=== PATIENT | female | born 1930 | race Caucasian/White ===

== ENCOUNTER 2016-12-04 12:45 | Inpatient (IN) | payer MEDICARE, MEDICAID ==
[~2016-12-04] VITALS: Ht 162.6 cm; Wt 73.9 kg
[~2016-12-04 12:45] MED LIST: BL ASPIRIN325 MG PO; HYDROCO/APAP1 TA9 PO; LASIX 40 MG TAB40 MG PO; LAXATIVE25 MG PO; LOSARTAN POT100 MG PO; METOPROLOL50 M1 PO; SIMVASTATIN40 MG PO; STOOL SOFTENER100 MG PO
[2016-12-07 12:10] VITALS: BP 183/90
[2016-12-07 12:50] LABS: HEMATOCRIT 41.8 % (37.0-47.0); IMMATURE GRANULOCYTES 0.3 % (0.0-1.0); MEAN CELL VOLUME 95.9 fL CALC (80.0-100.0); MEAN CORPUSCULAR HGB 32.1 pG CALC (26.0-32.0); MEAN CORPUSCULAR HGB CONC 33.5 g/L CALC (32.0-36.0); NEUT# 8.07 thou/uL (2.00-7.15); RED BLOOD COUNT 4.36 mill/uL (4.20-5.60); RED CELL DISTRI WIDTH 13.8 % (11.5-15.5)
== END 2016-12-07 15:00 | disposition home or self-care (01) | DRG 554 ==
LOC: MS2 12-07 11:00
PROVIDERS: ADMIT Orthopaedic Surgery; ATTEND Orthopaedic Surgery
DX: M17.12 Unilateral primary osteoarthritis, left knee (principal); R50.9 Fever, unspecified; M21.062 Valgus deformity, not elsewhere classified, left knee; Z53.09 Procedure and treatment not carried out because of other contraindication; Z96.651 Presence of right artificial knee joint
CPT/HCPCS: J2270

== ENCOUNTER 2017-02-28 11:27 | Inpatient (IN) | payer MEDICARE, MEDICAID ==
[~2017-02-28] VITALS: Ht 162.6 cm; Wt 69.4 kg
[~2017-02-28 11:27] MED LIST changes: +EQL IBUPROFEN200 MG PO
[2017-03-08] VITALS (7 sets, daily range): BP systolic 99–153; BP diastolic 52–76
[2017-03-08] MEDS ORDERED: AMLODIPINE5 MG PO (06:05)
--- NOTE | 2017-03-08 11:22 | NUR ---
PT ARRIVED TO THE FLOOR WITH TWO MEMBERS OF THE OR STAFF. PT IS ALERT, AWAKE, AND ORIENTATED X3. PT ALREADY IN BED. PT ORIENTATED TO ROOM, RIGHTS, RESPONSIBILITIES AND CALL LIGHT. PT HAS EXTREME VISUAL LOSS, PICKS UP BOX OF TISSUES AND PUTS TO FACE, CANNOT IDENTIFY OBJECT. PT STATES "MY EYE SITE REALLY WENT BAD WHEN I HAD MY MINI STROKE." PT HAS DOCUMENTED LEFT SIDED CVA. PT CAN READILY IDENTIFY RED BUTTON OCULAR CARE TECHNICIAN LIGHT (NURSES LIGHT). PHYSICAL THERAPY IN ROOM AT THIS TIME TO WORK WITH PT.
--- NOTE | 2017-03-08 13:12 | NUR ---
Visited pt room for med rec. Talked to pt regarding home medications. Reviewed drug, strength, and last time taken. Updated med list accordingly. Pt allergy list included amplodipine, checked with pt and she said she just started this medication on saturday and has not been having any side effects. Pt confirmed that she does have allergy to penicillin (tounge swelling and itching), as well as sulfa drugs (tongue swelling and itching). Pt indicated that benazepril made her stomach hurt which is not a true allergy. She was unsure about allergies to other medications on allergy list. Pt did not have any questions or concerns regarding her medications.
[2017-03-08 13:14] LABS: HEMATOCRIT 34.5 % (37.0-47.0); HEMOGLOBIN 11.5 g/dl (12.0-16.0); IMMATURE GRANULOCYTES 2.5 % (0.0-1.0); MEAN CELL VOLUME 97.2 fL CALC (80.0-100.0); MEAN CORPUSCULAR HGB 32.4 pG CALC (26.0-32.0); MEAN CORPUSCULAR HGB CONC 33.3 g/L CALC (32.0-36.0); NEUT# 16.58 thou/uL (2.00-7.15); RED BLOOD COUNT 3.55 mill/uL (4.20-5.60)
[2017-03-08 13:30] LABS: ANION GAP 12 (6-22 (CALC)); BUN 11 mg/dL (8-23); BUN/CREATININE RATIO 19 (12-20 (CALC)); CALCIUM 9.2 mg/dL (8.4-10.2); CARBON DIOXIDE 22 mmol/l (22-30); CHLORIDE 107 mmol/l (95-108); CREATININE 0.6 mg/dL (0.5-1.0); GFR > 60 ML/MIN (>=60 (CALC)); GFR FOR AFR.AMER. > 60 ML/MIN (>=60 (CALC)); GLUCOSE 175 mg/dL (82-115); MAGNESIUM 1.8 mg/dL (1.6-2.3); POTASSIUM 3.9 mmol/l (3.5-5.1); SODIUM 138 mmol/l (137-146)
--- NOTE | 2017-03-08 15:00 | NUR ---
PT MEDICATED FOR LT KNEE PAIN 12/30; IVF INFUSING WITHOUT DIFFICULTY; NO OTHER COMPLAINTS VOICED; CALL RO WITHIN REACH; WILL CONTINUE TO MONITOR.
--- NOTE | 2017-03-08 17:24 | NUR ---
PT RESTING WITH EYES CLOSED; NO S/SX OF DISTRESS NOTED; DRSG TO LT KNEE CDI; SCD IN PLACE; CALL RO WITHIN REACH; WILL CONTINUE TO MONITOR.
--- NOTE | 2017-03-08 18:26 | NUR ---
PT ASSISTED WITH BEDPAN; VOIDS WITHOUT DIFFICULTY; NO COMPLAINTS VOICED; CALL RO WITHIN REACH; WILL CONTINUE TO MONITOR
--- NOTE | 2017-03-08 20:05 | NUR ---
PT IS RELAXING IN BED WITH NO DISTRESS NOTED. IV SITE IS FREE FROM REDNESS OR EDEMA. DRESSING ON LEFT KNEE IS CDI. ICE PACK IN PLACE.CONTINUE TO OSBERVE AND MONITOR.
[2017-03-09 00:12] VITALS: BP 150/56
--- NOTE | 2017-03-09 00:30 | NUR ---
PT IS RELAXING IN BED WITH NO DISTRESS NOTED. IV SITE IS FREE FROM REDNESS OR EDEMA.
[2017-03-09 03:25] VITALS: BP 174/89
--- NOTE | 2017-03-09 04:30 | NUR ---
PT IS RELAXING IN BED WITH NO DISTRESS NOTED. IV SITE IS FREE FROM REDNESS OR EDEMA.
[2017-03-09 06:26] LABS: HEMATOCRIT 29.7 % (37.0-47.0); HEMOGLOBIN 9.9 g/dl (12.0-16.0)
[2017-03-09 09:58] VITALS: BP 133/79
--- NOTE | 2017-03-09 13:36 | NUR ---
A.MSara NOTE: PATIENT SEEN BEDSIDE FOR F.A. AND EX. SHE CONTINUES TO COMPLAIN THE LEFT LEG IS NUMB AND SHE CANNOT MOVE IT. LEFT FOOT MODERATELY EDEMATOUS. EVEN THOUGH PATIENT WAS VERY NEGATIVE ABOUT DOING ANY ACTIVITY, SHE COOPERATED WELL. THE WEAK LEFT SHOULDER MAY HINDER HER REHAB SHE CANNOT PUSH WELL WITH THIS ARM.(PREVIOUS SHOULDER SURGERY). EXERCISES DONE IN SUPINE FOR UE AROM, RIGHT LE ROM AND SLR'S, GLUT ISOMETRICS, AND ANKLE PUMPS. PATIENT ABLE TO COMPLETE FULL ROM ANKLE PUMPS WITH LEFT FOOT. UNABLE TO PALPATE OR VISUALIZE QUAD SET. TRANSFER TRAING DONE SUPINE TO SIT, SIT TO CHAIR, AND CHAIR TO COMMODE AND RETURN TO CHAIR. SIT BALANCE IS GOOD. PATIENT NEEDS MAX VERBAL CUING AND MILD ASSIST TO COME TO SIT ON EDGE OF BED AND TO SCOOT FORWARD IN THE CHAIR. TRANSFERS ARE WITH MAX ASSIST OF ONE. SHE APPEARED VERY FRIGHTENED TO TRY THE WALKER TODAY. SHE ASSISTED WITH THE PUSH UP FROM SITTING, BUT IS ABLE TO STAND STRAIGHT AND PLACES MOST OF WGT ON THE THERAPIST. SHE WAS ABLE TO SIT IN THE CHAIR FOR 2 HOURS BEFORE ASKING TO RETURN TO BED BECAUSE OF SLEEPINIESS. SHE WAS LEFT COMFORTABLE IN THE BED WITH THE CALL LIGHT BY HER SIDE.
--- NOTE | 2017-03-09 13:43 | NUR ---
PM NOTE: PATIENT SEEN FOR THERAPY FOR F.A. AND EX. STATES SHE HAS BEEN DOING HER EXERCISES IN THE CHAIR. SHE APPEARS MORE CONFIDENT THIS P.M. AND ASSISTED MORE WITH THE TRANSFERS. EX DONE IN SITTING. TRANSFERS STILL MAX ASSIST OF ONE. TOMORROW WILL START STANDING WITH THE WALKER. SHE APPEARED TO TOLERATE TREATMENT WELL. SHE WAS LEFT COMFORTABLE WITH THE CALL LIGHT BY HER SIDE.
--- NOTE | 2017-03-09 14:34 | NUR ---
BEDSIDE REPORT RECIEVED FROM COLETTE SIBLEY. PT AWAKE UPON ENTRY. NO COMPLAINTS OF PAIN AT THE MOMENT. IV SITE HAS NO SWELLING OR REDNESS. SAFETY PRECAUTIONS REINFORCED. CALL LIGHT WITHIN REACH. WILL CONTINUE TO MONITOR.
[2017-03-09 15:14] VITALS: BP 134/61
--- NOTE | 2017-03-09 16:12 | NUR ---
PT RESTING IN BED AND DOESNT HAVE ANY COMPLAINTS OF PAIN. RESP EVEN AND UNLABORED. LEFT KNEE POPLITEAL PULSE STRONG. CAPILLARY REFILL <3. DRESSING CDI. WILL CONTINUE TO MONITOR. CALL LIGHT WITHIN REACH.
--- NOTE | 2017-03-09 18:45 | NUR ---
NO ACUTE CHANGE IN PT CONDITION. PT HAS NO COMPLAINTS OF PAIN. LEFT POPLITEAL PULSE STRONG. CAPILLARY REFILL <3. SAFETY PRECAUTIONS REINFORCED. CALL LIGHT WITHIN REACH.
[2017-03-09 19:03] VITALS: BP 167/76
--- NOTE | 2017-03-09 19:37 | NUR ---
TEMP 102.5 MEDICATED WITH TYLENOL 1000MG AT THIS TIME, ICE PACK APPLIED . PT IS A/O X3, ABLE TO INSPIRED 750ML WITH I/S. DRESSING CDI IN PLACE TO LEFT KNEE P/O DAY 1, LEFT KNEE ARTHROPLASTY. CALL LIGHT IN REACH, WILL CONTINUE TO MONITOR.
--- NOTE | 2017-03-09 20:47 | NUR ---
TEMP DOWN TO 101.2
--- NOTE | 2017-03-09 21:39 | NUR ---
TEMP 99.3. C/O PAIN TO L KNEE AND LEFT UPPER RIB AREA 5/10, MEDICATED WITH PERCOCET. PT HAS FLAT AFFECT.
[2017-03-09 22:49] LABS: URINE BILIRUBIN - DIPSTICK NEGATIVE (NEGATIVE); URINE BLOOD DIPSTICK NEGATIVE (NEGATIVE); URINE COLOR YELLOW; URINE GLUCOSE - DIPSTICK NEGATIVE (NEGATIVE); URINE KETONE NEGATIVE (NEGATIVE); URINE LEUK ESTERASE NEGATIVE (NEGATIVE); URINE NITRITE - DIPSTICK NEGATIVE (Negative); URINE PH 5.5 (4.5-8.0); URINE PROTEIN - DIPSTICK NEGATIVE (NEG-TRACE); URINE UROBILINOGEN - DIPSTICK 0.2 E.U./dL (0.2)
[2017-03-09 22:56] LABS: URINE CLARITY CLEAR
[2017-03-09 23:50] VITALS: BP 130/63
--- NOTE | 2017-03-09 23:59 | NUR ---
CALLED REQUESTING BED OH, OFFERED ASSISTANCE TO BSC AND REFUSES, TURNS TO LEFT SIDE WITH NO ASSISTANCE, VOIDING CLEAR YELLOW URINE.
[2017-03-10 04:13] VITALS: BP 152/65
--- NOTE | 2017-03-10 04:16 | NUR ---
TEMP 102.5 TYLENOL 650MG PO GIVEN AT THIS TIME, ALSO PERCOCET FOR LEFT LEG PAIN. CALL LIGHT IN REACH.
[2017-03-10 06:24] LABS: HEMATOCRIT 27.9 % (37.0-47.0); HEMOGLOBIN 9.4 g/dl (12.0-16.0); IMMATURE GRANULOCYTES 0.8 % (0.0-1.0); MEAN CELL VOLUME 96.9 fL CALC (80.0-100.0); MEAN CORPUSCULAR HGB 32.6 pG CALC (26.0-32.0); MEAN CORPUSCULAR HGB CONC 33.7 g/L CALC (32.0-36.0); NEUT# 10.09 thou/uL (2.00-7.15); RED BLOOD COUNT 2.88 mill/uL (4.20-5.60); RED CELL DISTRI WIDTH 14.1 % (11.5-15.5)
[2017-03-10 06:47] LABS: ANION GAP 13 (6-22 (CALC)); BUN 8 mg/dL (8-23); BUN/CREATININE RATIO 14 (12-20 (CALC)); CALCIUM 9.1 mg/dL (8.4-10.2); CARBON DIOXIDE 24 mmol/l (22-30); CHLORIDE 103 mmol/l (95-108); CREATININE 0.6 mg/dL (0.5-1.0); GFR > 60 ML/MIN (>=60 (CALC)); GFR FOR AFR.AMER. > 60 ML/MIN (>=60 (CALC)); GLUCOSE 106 mg/dL (82-115); MAGNESIUM 1.7 mg/dL (1.6-2.3); POTASSIUM 3.7 mmol/l (3.5-5.1); SODIUM 135 mmol/l (137-146)
--- NOTE | 2017-03-10 07:00 | NUR ---
REPORT RECIEVED FROM COLETTE ROSS. PT AWAKE ON ENTRY AND HAS NO COMPLAINTS OF PAIN. RESP EVEN AND UNLABORED. SAFETY PRECAUTIONS REINFORCED. CALL LIGHT WITHIN REACH. WILL CONTINUE TO MONITOR.
[2017-03-10 07:34] VITALS: BP 131/75
--- NOTE | 2017-03-10 09:54 | NUR ---
POWER PICC FLUSHED WITH NS AND HEPARIN PER PROTOCOL.
--- NOTE | 2017-03-10 11:22 | NUR ---
PT UP TO BEDSIDE CHAIR WITH PT. CALL LIGHT WITHIN REACH.
--- NOTE | 2017-03-10 11:55 | NUR ---
AM: PATIENT SEEN FOR GT AND EX. SHE IS LESS APPREHENSIVE APPEARING TODAY AND STATES HER LEG FEELS MORE AWAKE. TREATMENT TODAY WAS EXERCISE IN SUPINE AND SITTING PER YESTERDAY. MILD QUAD SET VISIBLE TODAY ON LEFT. ABLE TO DO HEEL SLIDES IN SUPINE APPROX. TO 20 DEGREES OF KNEE FLEXION, AND IN SITTING SHE HAD 80 DEGREES OF KNEE FLEXION. TRANSFERS TO THE EDGE OF THE BED REQUIRED APPROX 8 MIN, BUT SHE REQUIRED ONLY MOD ASSIST WITH THE LEFT LEG. STANDING EX WITH WALKER DONE BY THE BED. INITIALLY SHE WAS VERY FLEXED BUT WITH MILD ASSIST AND ENCOURAGEMENT, SHE WAS ABLE TO COME TO FULL STAND. WITH VERBAL CUING AND MIN ASSIST SHE COMPLETED THE TRANSFER TO THE CHAIR. PATIENT LEFT COMFORTABLE IN THE CHAIR WITH THE CALL LIGHT NEXT TO HER. SHE APPEARED TO TOLERATE TREATMENT WELL.
--- NOTE | 2017-03-10 13:28 | NUR ---
PM. PATIENT SEEN FOR FA AND GT. TRANSFER TRAINING DONE SIT TO AND FROM STAND, AND CHAIR TO COMMODE TO BED, AND SIT TO SUPINE. SHE NEEDS CONTINUAL CUING AND SENSORY CUING. SHE IS UNABLE TO STAND ERECT THIS P.M. SHE DID THIS A.M. DURING TRANSFERS SHE REQUIRES CONTINUAL CUING FOR FOOT AND WALKER PLACEMENT. IS ABLE TO HOLD HER WGT ON HER LEGS THOUGH. SHE WAS LEFT COMFORTABLE IN BED WITH THE CALL LIGHT NEXT TO HER. SHE APPEARED TO TOLERATE TREATMENT WELL.
[2017-03-10 15:45] VITALS: BP 125/62
--- NOTE | 2017-03-10 16:04 | NUR ---
DRESSING APPLIED TO LEFT LEG. STERIL GAUZE, WITH TEGADERM APPLIED. PT PULSE IS STRONG. CAPILLARY REFILL <3. EDEMA TO LEFT LEG IMPROVED. WILL CONTINUE TO MONITOR.
[2017-03-10 19:25] VITALS: BP 125/58
--- NOTE | 2017-03-10 20:44 | NUR ---
C/O PAIN TO LEFT LEG 08/29, MEDICATED WITH PERCOCET AT THIS TIME, TYLENOL ALSO PROVIDED DUE TO TEMP 100.9. ICE APPLIED TO LEFT KNEE. DRESSING IN PLACE, [place]. LEFT LEG IS EDEMATOUS, BRISK CAPILARY REFIL, WEAK PEDAL PULSES BLE. INSPIRING 750ML WITH I/S 10X, WILL CONTINUE TO MONITOR.
[2017-03-10 23:06] VITALS: BP 123/75
--- NOTE | 2017-03-10 23:39 | NUR ---
ORIENTE TO USE INCENTIVE SPIROMETER, INSPRATION VOLUME 750ML
--- NOTE | 2017-03-11 01:18 | NUR ---
OOB TO BSC WITH SLOW UNSTEADY GAIT, VOIDING DARK YELLOW URINE THEN BACK TO BED. CALL LIGHT IN REACH.
[2017-03-11 03:37] VITALS: BP 126/70
--- NOTE | 2017-03-11 04:45 | NUR ---
MORNING BLOODWORK DRAWN BY COLOR PASTE MIXING SUPERVISOR, TOLERATED WELL.
[2017-03-11 05:24] LABS: HEMATOCRIT 25.1 % (37.0-47.0); HEMOGLOBIN 8.3 g/dl (12.0-16.0); MEAN CELL VOLUME 98.4 fL CALC (80.0-100.0); MEAN CORPUSCULAR HGB 32.5 pG CALC (26.0-32.0); MEAN CORPUSCULAR HGB CONC 33.1 g/L CALC (32.0-36.0); RED BLOOD COUNT 2.55 mill/uL (4.20-5.60); RED CELL DISTRI WIDTH 14.3 % (11.5-15.5)
[2017-03-11 05:40] LABS: ANION GAP 11 (6-22 (CALC)); BUN 14 mg/dL (8-23); BUN/CREATININE RATIO 20 (12-20 (CALC)); CALCIUM 8.6 mg/dL (8.4-10.2); CARBON DIOXIDE 25 mmol/l (22-30); CHLORIDE 102 mmol/l (95-108); CREATININE 0.7 mg/dL (0.5-1.0); GFR > 60 ML/MIN (>=60 (CALC)); GFR FOR AFR.AMER. > 60 ML/MIN (>=60 (CALC)); GLUCOSE 92 mg/dL (82-115); POTASSIUM 4.1 mmol/l (3.5-5.1); SODIUM 135 mmol/l (137-146)
--- NOTE | 2017-03-11 07:15 | NUR ---
PT.IN BED SLEEPING AT THIS TIME. BEDSIDE REPORT RECEIVED FROM NIGHT NURSE. CALL LIGHT IS AT PT.SIDE AND NO S/S OF DISTRESS AT THIS TIME.
[2017-03-11 07:30] VITALS: BP 128/63
--- NOTE | 2017-03-11 09:17 | NUR ---
Pt. seen this AM for functional activity of transfer training, gait belt and non skid socks on applied prior to doing so. Supine to sit with stand by supervision. V.C.'s for UE push off from bed to stand to RW. Pt. takes short steps using rolling walker and with contact guard assist x1. Pt. advances left foot by sliding it on the floor. 3-5 steps taken to BS, reaching back with UE's for lowering herself. CGA x1 maintained at all times. Pt. performed her own pericare, min. assist x1 needed for sit to stand from [facility]. Pt. then took 3-5 steps to recliner, pt. recalled to reach back for armrests to slowly lower herself. V.C.'s also given throughout treatment for postural awareness. Pt. O2 sats maintained in high 90's. Pt. left resting in recliner with LE's elevated and call light within reach, pt. without complaints.
--- NOTE | 2017-03-11 10:06 | NUR ---
PT.UPRIGHT IN RECLINER, MEDICATED W/AM MEDICATIONS ORDERED. PT.DENIES ANY PAIN OR DISCOMFORT AT THIS TIME. CALL LIGHT AND BST W/IN MADISYN. PT.DENIES ANY OTHER NEEDS
[2017-03-11 15:10] VITALS: BP 100/61
--- NOTE | 2017-03-11 15:25 | NUR ---
Pt. seen this PM for therapeutic exercises in bed, with HOB elevated. PROM of left knee performed per pt. tolerance 2x10 repetitions followed by active assisted left SAQ exercises x10 repetitions. Pt. then assisted with left SLR x6 repetitions. Heels were floated with pillow for AROM left ankle PF and DF x15 repetitions. Reviewed with pt. all exercises. Pt. left resting comfrotably with call light and bedside table left within reach. Pt. without complaints, nurse informed.
--- NOTE | 2017-03-11 18:24 | NUR ---
PT.UPRIGHT IN RECLINER EATING DINNER. TEMP 98.9 AND PT.DENIES BM OF YET.
--- NOTE | 2017-03-11 19:32 | NUR ---
pt awake in bed; no distress noted; assessment completed at this time; pt alert and oriented; admits to left knee pain/medicated as per orders; resp even and unlabored; lungs clear; skin color wnl; ra; hr reg; strong pulses; trace edema noted to rle/ 2+ edema noted to lle; abd soft with bs present; no bm noted per travel writer; admits to voiding without complication; no urine to inspect at this time; #20 in lfa saline locked; no redness or edema noted at site; dressing cdi to left knee/no drainage noted; lle elevated on pillow; plan of care/pm meds explained; I.S at bedside; q2h w/a use encouraged; call light within reach; will continue to monitor
[2017-03-11 19:35] VITALS: BP 123/72
--- NOTE | 2017-03-11 20:54 | NUR ---
pm meds explained and administered; iv flushed and patent; call light within reach; will continue to monitor
--- NOTE | 2017-03-12 00:04 | NUR ---
awake; noted scratching head; pt admits to feeling itchy all over; no rash no resp distress noted; pt states "I'm allergic to something in that" (pt pointing to mag citrate bottle); laxative removed; iv intact; pt deny itching being related to pain meds/ states "I take them all the time"; Dr Christianson notified; orders to be placed; will continue to monitor
[2017-03-12 00:24] VITALS: BP 105/63
--- NOTE | 2017-03-12 03:28 | NUR ---
awake; assisted to bsc as per request; no distress noted; will continue to monitor
[2017-03-12 04:55] VITALS: BP 116/78
[2017-03-12 06:09] LABS: HEMOGLOBIN 9.1 g/dl (12.0-16.0); MEAN CELL VOLUME 99.3 fL CALC (80.0-100.0); MEAN CORPUSCULAR HGB 32.3 pG CALC (26.0-32.0); MEAN CORPUSCULAR HGB CONC 32.5 g/L CALC (32.0-36.0); RED BLOOD COUNT 2.82 mill/uL (4.20-5.60); RED CELL DISTRI WIDTH 14.5 % (11.5-15.5)
--- NOTE | 2017-03-12 06:13 | NUR ---
awake in bed; complaints of pain in left knee and left foot; medicated with percocet as per orders; iv intact; pt aadmits to a very scant bm; bed in lowest position; call light within reach
[2017-03-12 06:26] LABS: ANION GAP 13 (6-22 (CALC)); BUN 10 mg/dL (8-23); BUN/CREATININE RATIO 16 (12-20 (CALC)); CARBON DIOXIDE 27 mmol/l (22-30); CHLORIDE 101 mmol/l (95-108); CREATININE 0.7 mg/dL (0.5-1.0); GFR > 60 ML/MIN (>=60 (CALC)); GFR FOR AFR.AMER. > 60 ML/MIN (>=60 (CALC)); GLUCOSE 99 mg/dL (82-115); POTASSIUM 4.8 mmol/l (3.5-5.1); SODIUM 136 mmol/l (137-146)
--- NOTE | 2017-03-12 06:55 | NUR ---
PT.IN BED RESTING, BUT AWAKE. BEDSIDE REPORT RECEIVED FROM NIGHT NURSE. PT.C/O SLIGHT ITCHINESS, NO VISIBLE HIVES OR RASH AT THIS TIME. DENIES ANY OTHER NEEDS. DENIES PAIN AT THIS TIME, REPORTS PAIN MEDICATION HAS HELPED. CALL LIGHT IS W/IN REACH AND PT.INSTRUCTED TO CALL IF ANY NEEDS ARISE. IS AT BEDSIDE AND PT.HAS BEEN ENCOURAGED TO USE WHEN AWAKE. WEAK PEDAL PULSE, 2+EDEMA TO LEFT LEG ALONG W/BRUISING TO LEFT KNEE AREA AND LOWER LEG.
[2017-03-12 07:25] VITALS: BP 107/60
--- NOTE | 2017-03-12 07:25 | NUR ---
V/S ASSESSED, PT.ASSISTED TO BSC. DENIES ANY OTHER NEEDS AT THIS TIME. CALL WATER ENGINEER IS STAYING W/PT. AT THIS TIME.
[2017-03-12 09:15] VITALS: BP 107/60
--- NOTE | 2017-03-12 09:24 | NUR ---
PT.MEDICATED W/AM MEDICATONS, DENIES PAIN AT THIS TIME. SHE IS UPRIGHT IN RECLINER W/FEET ELEVATED. POC AND DISCHARGE DISCUSSED AND ANSON W/CASE MANAGEMENT IS IN TO SEE PT. CALL LIGHT AT SIDE.
--- NOTE | 2017-03-12 11:51 | NUR ---
Pt. found sitting in recliner and in agreement to participate in gait training this AM. Gait belt and non skid socks applied prior to doing so. Pt. education for UE push off from recliner armrests of which pt. was knowledgeable with. Sit to stand from recliner to RW with light CGA x1, pt. WBAT on left LE. In standing verbal and tactile cues given for postural awareness. Pt. took 8-10 steps forward with RW and light CGA x1, steps are short. Pt. slides left foot on floor to advance. Pt. then sat on recliner per pt. request, good safety awareness observed. Sitting in recliner P/AAROM was done to left knee before after gait training. Active ankle pumps also performed. LE's elevated in recliner, call light reviewed and left within reach. Pt. without complaints.
[2017-03-12] MEDS ORDERED: VITAMIN D50000 UNIT PO (12:01)
[2017-03-12] MEDS ORDERED: PANTOPRAZOLE SO40 M1 PO (12:01)
[2017-03-12] MEDS ORDERED: HYDROCO/APAP1 TA9 PO (12:01)
--- NOTE | 2017-03-12 13:48 | NUR ---
PT.DISCHARGED OFF THE FLOOR IN GOOD CONDITION VIA WC ACCOMPANIED BY STAFF FROM [facility]. PT.AMBULATED WELL TO WHEEL CHAIR USING WALKER
== END 2017-03-12 13:44 | DRG 470 ==
LOC: MS2 03-08 05:51
PROVIDERS: Internal Medicine; Nurse Practitioner Family; ADMIT Orthopaedic Surgery; ATTEND Internal Medicine
PROC: 0SRD0J9 Replacement of Left Knee Joint with Synthetic Substitute, Cemented, Open Approach (ICD-10-PCS; principal; 2017-03-08)
DX: M17.12 Unilateral primary osteoarthritis, left knee (principal); I10 Essential (primary) hypertension; I25.10 Atherosclerotic heart disease of native coronary artery without angina pectoris; D64.9 Anemia, unspecified; R50.82 Postprocedural fever; E87.1 Hypo-osmolality and hyponatremia; J98.11 Atelectasis; E55.9 Vitamin D deficiency, unspecified; E78.5 Hyperlipidemia, unspecified; M21.062 Valgus deformity, not elsewhere classified, left knee; R73.9 Hyperglycemia, unspecified; K59.00 Constipation, unspecified; Z79.82 Long term (current) use of aspirin; Z86.73 Personal history of transient ischemic attack (TIA), and cerebral infarction without residual deficits; Z96.651 Presence of right artificial knee joint
CPT/HCPCS: J2270

== ENCOUNTER 2018-10-21 14:30 | Inpatient (IN) | payer MEDICARE, MEDICAID ==
[~2018-10-21] VITALS: Ht 162.6 cm; Wt 65.0 kg
[~2018-10-21 14:30] MED LIST changes: +AMLODIPINE5 MG PO; +METOPROLOL SUCC25 MG PO; -METOPROLOL50 M1 PO; +PANTOPRAZOLE SO40 M1 PO; +VITAMIN D50000 UNIT PO
--- NOTE | 2018-10-21 14:38 | NUR ---
PATIENT TO ROOM VIA EMS AND PHYSICIAN AT BEDSIDE FOR EVAL
[2018-10-21 15:09] LABS: HEMATOCRIT 37.1 % (37.0-47.0); HEMOGLOBIN 12.3 g/dl (12.0-16.0); MEAN CELL VOLUME 97.1 fL CALC (80.0-100.0); MEAN CORPUSCULAR HGB 32.2 pG CALC (26.0-32.0); MEAN CORPUSCULAR HGB CONC 33.2 g/L CALC (32.0-36.0); NEUT# 10.14 thou/uL (2.00-7.15); RED BLOOD COUNT 3.82 mill/uL (4.20-5.60); RED CELL DISTRI WIDTH 13.7 % (11.5-15.5)
--- NOTE | 2018-10-21 15:10 | NUR ---
PURE WICK PLACED FOR COMFORT RELATED TO PAIN
[2018-10-21 15:17] LABS: ALBUMIN 4.3 g/dL (3.2-5.0); ALKALINE PHOSPHATASE 55 u/l (38-126); ANION GAP 15 (6-22 (CALC)); BILIRUBIN, TOTAL 0.6 mg/dL (0.0-1.4); BUN 9 mg/dL (8-23); BUN/CREATININE RATIO 18 (12-20 (CALC)); CARBON DIOXIDE 24 mmol/l (22-30); CHLORIDE 100 mmol/l (95-108); CREATININE 0.5 mg/dL (0.5-1.0); GFR > 60 ML/MIN (>=60 (CALC)); GFR FOR AFR.AMER. > 60 ML/MIN (>=60 (CALC)); SGOT/AST 24 u/l (9-36); SODIUM 134 mmol/l (137-146); TOTAL PROTEIN 6.9 g/dL (6.3-8.2)
[2018-10-21 15:25] LABS: PROTHROMBIN TIME 10.3 SECONDS (9.0-12.5)
--- NOTE | 2018-10-21 15:40 | NUR ---
PT MEDICATED FOR PAIN EARLIER WITH GOOD RELIEF, XRAYS COMPLETED AWAITING RESULTS FOR FURTHER EVAL AND PLAN OF CARE. PT AWARE AND VERBALIZES UNDERSTANDING
--- NOTE | 2018-10-21 16:30 | NUR ---
FRIEND TO GO HOME TO OBTAIN PT MEDICATION LIST, WILL RECONICILE MEDS AT THAT TIME
[2018-10-21] MEDS ORDERED: DULOXETINE HCL30 MG PO (16:49)
[2018-10-21] MEDS ORDERED: ALENDRONATE70 MG PO (16:53)
[2018-10-21] MEDS ORDERED: LORTAB 5/3255 MG PO (16:54)
[2018-10-21] MEDS ORDERED: MELOXICAM7.5 MG PO (16:54)
--- NOTE | 2018-10-21 17:12 | NUR ---
MD AT BEDSIDE TO SPEAK WITH PATIENT REGARDIGN ADMISSION, VERBAL CONSENT GIVEN
--- NOTE | 2018-10-21 17:38 | NUR ---
REPORT CALLED TO TOÑITO ALVARENGA ON MED SURG ROOM 270 ASSIGNED
--- NOTE | 2018-10-21 17:55 | NUR ---
PT TRASNFERRRED TO MED SURG ROOM 270 VIA NURSE TOÑITO THORPE AT BEDSIDE ON ARRIVAL.
--- NOTE | 2018-10-21 18:00 | NUR ---
PT ARRIVED FROM ER VIA STRETCHER ACCOMPANIED BY STAFF. IV SITE IS FREE FROM REDNESS OR EDEMA. PUREWICK IN PLACE . PT HAS "TWINGES OF PAIN IN THE PUBIC AREA". PT IS ALERT AND ORIENTED. CONTINUE TO OBSERVE AND MONITOR.
[2018-10-21 18:20] VITALS: BP 140/71
--- NOTE | 2018-10-21 20:00 | NUR ---
PT AWAKE RESTING IN BED. PT IS ALERT AND ORIENTED X4. RESP EVEN AND UNLABORED. LUNGS CLEAR BILAT. ABD SOFT AND NONDISTENDED WITH BOWEL SOUNDS PRESENT. NO LOWER EXT EDEMA NOTED.STRONG PEDAL AND POPLITEAL PULSES BILAT. BILAT FEET AND LEGS WARM TO TOUCH. PT IS ABLE TO MOVE LEFT LEG. PUREWICK IN PLACE. PT TURNED AND REPOSITIONED FOR COMFORT. HEPLOCK PATENT IN LEFT A.C. NO REDNESS OR TENDERNESS AT SITE. PT STATES HER DISCOMFORT IN LEFT HIP IS INTERMITTENT. LEFT HIP SKIN IS INTACT. FALL BRACELET AND YELLOW SOCKS ON PT. FREQUENT ROUNDS MADE. CALL RO WITHIN REACH.
--- NOTE | 2018-10-21 20:13 | NUR ---
PT MEDICATED WITH ULTARM 50MG ONE TAB FOR LEFT HIP DISCOMFORT. FREQUENT ROUNDS MADE. CALL RO WITHIN REACH.
--- NOTE | 2018-10-21 22:30 | NUR ---
PT AWAKE RESTING IN BED. PT OFFERED EVENING SNACK. RESP EVEN AND UNLABORED. PT ASSISTED WITH REPOSITIONING FOR COMFORT. PT DID STATE PAIN MED DID HELP SOME. HEPLOCK PATENT. WILL CONTINUE TO MONITOR CLOSELY. FREQUENT ROUNDS MADE. CALL RO WITHIN REACH.
--- NOTE | 2018-10-22 00:25 | NUR ---
PT RESTING IN BED WITH EYES CLOSED. RESP EVEN AND UNLABORED. HEPLOCK PATENT. PUREWICK IS IN PLACE. NO DISTRESS NOTED. FREQUENT ROUNDS MADE. CALL RO WITHIN REACH.
--- NOTE | 2018-10-22 01:56 | NUR ---
PT AWAKE RESTING IN BED. ASSISTED WITH REPOSITIONING. MEDICATED WITH ULTRAM 50MG P.O FOR LEFT HIP DISCOMFORT. STRONG PEDAL AND POPLITEAL PULSES PALPATED. FOOT WARM TO TOUCH. FREQUENT ROUNDS MADE. CALL RO WITHIN REACH.
[2018-10-22 04:15] VITALS: BP 142/80
--- NOTE | 2018-10-22 04:30 | NUR ---
PT AWAKE RESTING IN BED. ROSALBA CARE GIVEN. PT TURNED AND REPOSITIONED ON HER SIDE WITH PILLOW SUPPORTING HER BACK. CORY HOSE ON. WICK ON PUREWICK CHANGED AND REPOSITIONED DRAINING CLEAR YELLOW URINE. STRONG PEDAL AND POPLITEAL PULSES PALPATED BILAT. FREQUENT ROUNDS MADE. CALL RO WITHIN REACH.
[2018-10-22 05:32] LABS: HEMATOCRIT 35.1 % (37.0-47.0); HEMOGLOBIN 11.9 g/dl (12.0-16.0); IMMATURE GRANULOCYTES 0.7 % (0.0-5.0); MEAN CELL VOLUME 94.4 fL CALC (80.0-100.0); MEAN CORPUSCULAR HGB CONC 33.9 g/L CALC (32.0-36.0); NEUT# 10.01 thou/uL (2.00-7.15); RED BLOOD COUNT 3.72 mill/uL (4.20-5.60); RED CELL DISTRI WIDTH 13.5 % (11.5-15.5)
--- NOTE | 2018-10-22 05:49 | NUR ---
RESTING IN BED ON RT SIDE WITH EYES CLOSED. RESP EVEN AND UNLABORED. NO DISTRESS NOTED. FREQUENT ROUNDS MADE. CALL RO WITHIN REACH.
[2018-10-22 05:55] LABS: ALBUMIN 4.1 g/dL (3.2-5.0); ALKALINE PHOSPHATASE 54 u/l (38-126); AMYLASE 50 u/l (30-110); ANION GAP 16 (6-22 (CALC)); BILIRUBIN, TOTAL 0.7 mg/dL (0.0-1.4); BUN 7 mg/dL (8-23); BUN/CREATININE RATIO 18 (12-20 (CALC)); CARBON DIOXIDE 23 mmol/l (22-30); CHLORIDE 94 mmol/l (95-108); CREATININE 0.4 mg/dL (0.5-1.0); GFR > 60 ML/MIN (>=60 (CALC)); GFR FOR AFR.AMER. > 60 ML/MIN (>=60 (CALC)); LIPASE 30 u/l (23-300); MAGNESIUM 1.9 mg/dL (1.6-2.3); POTASSIUM 3.7 mmol/l (3.5-5.1); SGOT/AST 24 u/l (9-36); SODIUM 129 mmol/l (137-146); TOTAL PROTEIN 6.6 g/dL (6.3-8.2)
[2018-10-22 08:15] VITALS: BP 136/87
--- NOTE | 2018-10-22 08:15 | NUR ---
ASSESSMENT IS COMPLETED: IV SITE IS FREE FROM REDNESS OR EDEMA. HR IS REG,PULSES ARE STRONG X4, ABD IS SOFT WITH ACTIVE BS. MINIMAL BRUISING NOTED. PUREWICK CATHETER IN PLACE, CONTINUE TO OBSERVE AND MONITOR.
--- NOTE | 2018-10-22 12:45 | NUR ---
PT IS RELAXING IN BED WORKING ON PUZZLES STATED" I AM OK". AT [address] A SPRINGER, UNSUCCESSFUL. HAD AUTISM SPECIALIST ATTEMPT ALSO UNSUCCESSFUL. CONTINUE TO OBSERVE AND MONITOR.
--- NOTE | 2018-10-22 16:45 | NUR ---
PT IS RELAXING IN BED WITH PUREWICK IN PLACE. CONTINUE TO OBSERVE AND MONITOR.
[2018-10-22 17:20] VITALS: BP 109/52
--- NOTE | 2018-10-22 19:40 | NUR ---
PT RESTING IN BED, NO SIGNS OF DISTRESS NOTED, RESP EVEN AND UNLABORED.PT ALERT AND ORIENTED X3. DISCUSSED POC, PT HAS A PUREWICK TO SUCTION. ASSESSMENT COMPLETED, CALL LIGHT IN REACH,CONTINUE TO MONITOR.
[2018-10-22 19:47] VITALS: BP 112/65
--- NOTE | 2018-10-22 20:34 | NUR ---
PT RESTING IN BED, C/O PAIN TO L HIP, PT MEDICATED FOR PAIN. CALL LIGHT IN REACH,CONTINUE TO MONITOR.
--- NOTE | 2018-10-23 | NUR ---
PT RESTING IN BED, NO SIGNS OF DISTRESS NOTED, RESP EVEN AND UNLABORED. CALL LIGHT IN REACH,CONTINUE TO MONITOR.
[2018-10-23 04:14] VITALS: BP 119/60
--- NOTE | 2018-10-23 04:20 | NUR ---
PT RESTING IN BED, C/O PAIN TO L HIP. PT MEDICATED WITH LORTAB, PURE WICK CHANGED AT THIS TIME. CALL LIGHT IN REACH,CONTINUE TO MONITOR.
[2018-10-23 05:17] LABS: HEMATOCRIT 29.4 % (37.0-47.0); IMMATURE GRANULOCYTES 0.7 % (0.0-5.0); MEAN CELL VOLUME 94.5 fL CALC (80.0-100.0); MEAN CORPUSCULAR HGB 31.8 pG CALC (26.0-32.0); MEAN CORPUSCULAR HGB CONC 33.7 g/L CALC (32.0-36.0); NEUT# 6.71 thou/uL (2.00-7.15); RED BLOOD COUNT 3.11 mill/uL (4.20-5.60); RED CELL DISTRI WIDTH 13.6 % (11.5-15.5)
[2018-10-23 05:20] LABS: HEMOGLOBIN 9.9 g/dl (12.0-16.0)
[2018-10-23 05:43] LABS: ALBUMIN 3.4 g/dL (3.2-5.0); ALKALINE PHOSPHATASE 46 u/l (38-126); ANION GAP 13 (6-22 (CALC)); BUN 9 mg/dL (8-23); BUN/CREATININE RATIO 15 (12-20 (CALC)); CARBON DIOXIDE 25 mmol/l (22-30); CHLORIDE 93 mmol/l (95-108); CREATININE 0.6 mg/dL (0.5-1.0); GFR > 60 ML/MIN (>=60 (CALC)); GFR FOR AFR.AMER. > 60 ML/MIN (>=60 (CALC)); POTASSIUM 4.2 mmol/l (3.5-5.1); SGOT/AST 22 u/l (9-36); SODIUM 125 mmol/l (137-146); TOTAL PROTEIN 5.7 g/dL (6.3-8.2)
[2018-10-23 08:15] VITALS: BP 108/56
--- NOTE | 2018-10-23 08:15 | NUR ---
ASSESSMENT IS COMPLETED: IV SITE IS FREE FROM REDNESS OR EDEMA. HR IS REG,PULSES ARE STRONG X4, ABD IS SOFT WITH ACTIVE BS. BREATH SOUNDS ARE CLEAR, BILATERALLY, PUREWICK IN PLACE. CONTINUE TO OSBERVE AND MONITOR.
--- NOTE | 2018-10-23 11:29 | NUR ---
GAVE PT THE SODIUM TABLET , PT STATES "NO SOONER DID IT HIT MY STOMACH AND I FELT LIKE I NEEDED TO THROW UP". 25CC OF BILE AND THE PILL CAME UP
--- NOTE | 2018-10-23 12:30 | NUR ---
PT IS RELAXING IN BED WITH NO DISTRESS NOTED. IV SITE IS FREE FROM REDNESS OR EDEMA.
[2018-10-23 15:34] VITALS: BP 135/78
--- NOTE | 2018-10-23 16:30 | NUR ---
[PT HAVING SOME BACK PAIN AND WITH HIP DISCOMFORT. IV SITE REMAINS FREE FROM REDNESS OR EDEMA. PUREWICK CATHETER IN PLACE.,
--- NOTE | 2018-10-23 19:37 | NUR ---
PT RESTING IN BED, NO SIGNS OF DISTRESS NOTED, RESP EVEN AND UNLABORED. PT ALERT AND ORIENTED X3, DISCUSSED POC, VERBALIZED UNDERSTANDING. PUREWICK IN PLACE, SKIN INTACT. HEEL PROTECTORS IN PLACE. ASSESSMENT COMPLETED, CALL LIGHT IN REACH,CONTINUE TO MONITOR.
[2018-10-23 19:54] VITALS: BP 113/60
--- NOTE | 2018-10-23 23:32 | NUR ---
PT RESTING IN BED, NO SIGNS OF DISTRESS NOTED, C/O PAIN, PT MEDICATED FOR PAIN. PURE WICK CHANGED AND PERICARE PROVIDED. REPOSITIONED PT IN BED, CALL LIGHT IN REACH,CONTINUE TO MONITOR.
[2018-10-24 04:00] VITALS: BP 113/59
--- NOTE | 2018-10-24 04:02 | NUR ---
PT HAS A LOW GRADE TEMP AND C/O PAIN 5/10. PT MEDICATED WITH LORTAB, BLANKETS REMOVED. TEMPERATURE LOWERED. CALL LIGHT IN REACH,CONTINUE TO MONITOR.
[2018-10-24 04:37] LABS: HEMATOCRIT 28.4 % (37.0-47.0); HEMOGLOBIN 9.5 g/dl (12.0-16.0); IMMATURE GRANULOCYTES 0.8 % (0.0-5.0); MEAN CORPUSCULAR HGB 31.5 pG CALC (26.0-32.0); MEAN CORPUSCULAR HGB CONC 33.5 g/L CALC (32.0-36.0); NEUT# 9.47 thou/uL (2.00-7.15); RED BLOOD COUNT 3.02 mill/uL (4.20-5.60); RED CELL DISTRI WIDTH 13.6 % (11.5-15.5)
[2018-10-24 04:53] LABS: ALBUMIN 3.2 g/dL (3.2-5.0); ALKALINE PHOSPHATASE 49 u/l (38-126); ANION GAP 14 (6-22 (CALC)); BILIRUBIN, TOTAL 0.9 mg/dL (0.0-1.4); BUN 9 mg/dL (8-23); BUN/CREATININE RATIO 16 (12-20 (CALC)); CARBON DIOXIDE 24 mmol/l (22-30); CHLORIDE 92 mmol/l (95-108); CREATININE 0.5 mg/dL (0.5-1.0); GFR > 60 ML/MIN (>=60 (CALC)); GFR FOR AFR.AMER. > 60 ML/MIN (>=60 (CALC)); MAGNESIUM 2.1 mg/dL (1.6-2.3); POTASSIUM 4.2 mmol/l (3.5-5.1); SGOT/AST 21 u/l (9-36); SODIUM 126 mmol/l (137-146); TOTAL PROTEIN 5.6 g/dL (6.3-8.2)
--- NOTE | 2018-10-24 07:19 | NUR ---
SHIFT CHANGE REPORT, PT SLEEPING AT THIS TIME, BREATHING EVEN AND NON-LABORED, NO SIGN DISCOMFORT, BED IN LOWEST POSITION AND CHECO LIGHT IN REACH.
--- NOTE | 2018-10-24 07:58 | NUR ---
AWAKE ALERT AND ORIENTED AT THIS TIME, SITTING UP IN BED HAVING MEAL, C/O PAIN @ 2-06/29, ALL NEEDS ADDRESSED.
[2018-10-24 08:00] VITALS: BP 98/58
--- NOTE | 2018-10-24 09:18 | NUR ---
NAUSEATED AND VOMITTING AT THIS TIME AFTER TAKING SODIUM TABLET, WILL CONTINUE TO MONITOR AND ADDRESS CONDITION.
[2018-10-24 10:39] VITALS: BP 119/60
--- NOTE | 2018-10-24 12:00 | NUR ---
RESTING IN BED, DR ROBLEDO ROUNDED AND DISCUSSED PLAN OF CARE, PT STATED UNDERSTANDING.
[2018-10-24 14:40] VITALS: BP 122/75
--- NOTE | 2018-10-24 16:00 | NUR ---
PHYSICAL THERAPIST CONSULTED AND EVALUATED, REPORTED PATIENT STOOD UP AT BEDSIDE AND IT OK TO HAVE HER USE BSC BUT PT STATED SHE DIDNT WANT TO GET UP AGAIN UNTIL TOMORROW AND REFUSED TO HAVE PURWICK CATHETER REMOVED TODAY, WILL CONTINUE TO MONITOR.
--- NOTE | 2018-10-24 19:30 | NUR ---
BEDSIDE REPORT RECEIVED FROM TD LUCERO. PT RESTING IN BED SEMI FOWLERS; ALERT AND ORIENTED. C/O 01/29 SPINAL AND PELVIC PAIN THAT SHE STATES BECAME SEVERE 10 MINUTES AGO AND REQUESTS PAIN MEDICATION. RESPIRATIONS EVEN AND UNLABORED ON ROOM AIR. PLAN OF CARE REVIEWED INCLUDING PLANNED DISCHARGE TO REHAB ON SATURDAY. PT ENCOURAGED TO VERABLIZE CONCERNS. STATES UNDERSTANDING. SAFETY MEASURES IN PLACE. CALL LIGHT WITHIN REACH.
[2018-10-24 19:38] VITALS: BP 114/65
--- NOTE | 2018-10-24 20:02 | NUR ---
LORTAB GIVEN FOR SPINAL AND PELVIC PAIN. PT PLACED ON BEDPAN; STATES SHE MAY HAVE TO HAVE BOWEL MOVEMENT. PURWIK REMOVED AT THIS TIME WITH SOME INCONTINENCE NOTED TO BRIEF.
--- NOTE | 2018-10-24 20:43 | NUR ---
PT HAD LARGE LOOSE BOWEL MOVEMENT AND STATES THAT SHE FEELS MUCH BETTER. ROSALBA CARE GIVEN AND NEW PURWIK APPLIED.
--- NOTE | 2018-10-24 21:22 | NUR ---
PT DECLINED LACTULOSE AFTER HAVING LARGE BM; ALSO DECLINED SODIUM TABLET STATING THAT SHE VOMITED TWICE WITH THE MEDICATION AND WILL ONLY TAKE IT WITH FULL MEALS. DISCUSSED CLARIFYING ORDER TO HAVE MEDICATION AT BREAKFAST AND DINNER.
--- NOTE | 2018-10-24 22:41 | NUR ---
PT ASSISTED BACK ONTO BED OH FOR SMALL LOOSE BOWEL MOVEMENT. FLUID FILLED BLISTER TO RIGHT BUTTOCK NOW AN OPEN AREA WITH PINK GRANULATION TISSUE. PHOTO PLACED IN CHART. PURWIK REPLACED.
--- NOTE | 2018-10-24 23:51 | NUR ---
LORTAB GIVEN FOR PELVIC PAIN 01/29; PT REPOSITIONED WITH PILLOWS FOR COMFORT. AFEBRILE. RESPIRATIONS EVEN AND UNLABORED ON ROOM AIR. IV SITE APPEARS HEALTHY AND FLUSHES. SAFETY MEASURES IN PLACE. CALL LIGHT WITHIN REACH.
--- NOTE | 2018-10-25 04:12 | NUR ---
PT ASLEEP WITH NO SIGNS OF DISTRESS; AWAKENS TO VERBAL STIMULI FOR VS AND LAB WORK. C/O MILD PELVIC PAIN; REPOSITIONING HELPS PAIN. NO REQUESTS OR CONERNS AT THIS TIME. CALL LIGHT WITHIN REACH.
[2018-10-25 04:40] VITALS: BP 105/66
[2018-10-25 04:40] LABS: HEMOGLOBIN 9.5 g/dl (12.0-16.0); IMMATURE GRANULOCYTES 0.7 % (0.0-5.0); MEAN CORPUSCULAR HGB 31.9 pG CALC (26.0-32.0); MEAN CORPUSCULAR HGB CONC 33.9 g/L CALC (32.0-36.0); NEUT# 9.51 thou/uL (2.00-7.15); RED BLOOD COUNT 2.98 mill/uL (4.20-5.60); RED CELL DISTRI WIDTH 13.8 % (11.5-15.5)
[2018-10-25 04:51] LABS: ALBUMIN 3.3 g/dL (3.2-5.0); ALKALINE PHOSPHATASE 52 u/l (38-126); ANION GAP 13 (6-22 (CALC)); BUN 8 mg/dL (8-23); BUN/CREATININE RATIO 15 (12-20 (CALC)); CARBON DIOXIDE 24 mmol/l (22-30); CHLORIDE 93 mmol/l (95-108); CREATININE 0.5 mg/dL (0.5-1.0); GFR > 60 ML/MIN (>=60 (CALC)); GFR FOR AFR.AMER. > 60 ML/MIN (>=60 (CALC)); MAGNESIUM 2.2 mg/dL (1.6-2.3); POTASSIUM 4.2 mmol/l (3.5-5.1); SGOT/AST 21 u/l (9-36); SODIUM 126 mmol/l (137-146); TOTAL PROTEIN 5.7 g/dL (6.3-8.2)
--- NOTE | 2018-10-25 06:05 | NUR ---
PURWIK UNSUCCESSFUL AT THIS TIME AND PT HAS URINARY INCONTINENCE; HYGIENE PERFORMED AND PURWIK REPLACED. LORTAB ADMINSITERED PER PT REQUEST.
[2018-10-25 08:20] VITALS: BP 120/61
--- NOTE | 2018-10-25 08:20 | NUR ---
ASSESSMENT IS COMPLETED; IV SITE IS FREE FROM REDNESS OR EDEMA. HR IS REG,PULSES ARE STRONG X4, ABD IS SOFT WITH ACTIVE BS. BREATH SOUNDS ARE CLEAR, BILATERALLY. PT HAS A SMALL POPPED BLISTER ON LEFT BUTTOCK. CONTINUE TO OSBERVE AND MONITOR.
--- NOTE | 2018-10-25 12:15 | NUR ---
PT HAS BEEN RELAXING IN BED WITH NO DISTRESS NOTE. IV SITE IS FREE FROM REDNESS OR EDEMA.
--- NOTE | 2018-10-25 16:15 | NUR ---
IV SITE IS FREE FROM REDNESS OR EDEMA. CONTINUE TO OBSERVE AND MONITOR
--- NOTE | 2018-10-25 16:29 | NUR ---
PT IS RESTING IN BED WITH NO DISTRESS NOTED. IV SITE IS FREE FROM REDNESS OR EDEMA.
[2018-10-25 17:16] VITALS: BP 114/59
[2018-10-25 19:25] VITALS: BP 102/60
--- NOTE | 2018-10-25 20:23 | NUR ---
Patient resting in bed. Patient repositioned for comfort. No S&S of distress. Breath sounds clear. Abdomen soft with active bowel sounds. Patient on bedrest and advised to call if needed. Will continue to monitor patient progress.
--- NOTE | 2018-10-26 00:30 | NUR ---
Patient resting in bed. No complaints of pain. No S&S of distress. Will continue to monitor patient progress. No change in previous assessment.
[2018-10-26 04:10] VITALS: BP 102/68
--- NOTE | 2018-10-26 04:19 | NUR ---
Patient resting in bed. No complaints of pain. V/S wnl. No S&S of distress. Will continue to monitor patient progress.
[2018-10-26 05:24] LABS: HEMATOCRIT 26.7 % (37.0-47.0); HEMOGLOBIN 8.8 g/dl (12.0-16.0); IMMATURE GRANULOCYTES 0.7 % (0.0-5.0); MEAN CELL VOLUME 97.1 fL CALC (80.0-100.0); NEUT# 8.57 thou/uL (2.00-7.15); RED BLOOD COUNT 2.75 mill/uL (4.20-5.60); RED CELL DISTRI WIDTH 14.4 % (11.5-15.5)
[2018-10-26 05:37] LABS: ANION GAP 12 (6-22 (CALC)); BUN 13 mg/dL (8-23); BUN/CREATININE RATIO 20 (12-20 (CALC)); CARBON DIOXIDE 25 mmol/l (22-30); CHLORIDE 95 mmol/l (95-108); CREATININE 0.7 mg/dL (0.5-1.0); GFR > 60 ML/MIN (>=60 (CALC)); GFR FOR AFR.AMER. > 60 ML/MIN (>=60 (CALC)); MAGNESIUM 2.3 mg/dL (1.6-2.3); POTASSIUM 4.5 mmol/l (3.5-5.1); SODIUM 128 mmol/l (137-146)
[2018-10-26 07:30] VITALS: BP 115/55
--- NOTE | 2018-10-26 07:30 | NUR ---
ASSESSMENT IS COMPLETED: IV SITE IS FREE FROM REDNESS OR EDEMA. HR IS REG, PULSES ARE STRONG X4, ABD IS SOFT WITH ACTIVE BS. BREATH SOUDNS ARE CLEAR,BILATERALLY, NO C/O SOB, PUREWICK IN PLACE. CONTINUE TO OBSERVE AND MONITOR.
--- NOTE | 2018-10-26 12:30 | NUR ---
PT WAS SITTING ON THE SIDE OF THE BED FOR LUNCH. IV SITE IS FREE FROM REDNESS OR EDEMA. FRIENDS CAME TO SEE. PT. PT WAS DIZZY UPON SITTING.
--- NOTE | 2018-10-26 15:26 | NUR ---
PT IN TO WORK WITH PT. ABLE TO AMBULATE IN THE ROOM WITH WALKER ND BEAR WEIGHT.
--- NOTE | 2018-10-26 15:28 | NUR ---
The patient is in less pain today She is seen for supine to sit to stnd transfers She complains of mild dizziness but is able to take 2 steps to and from bed with mod assist of 1 and FWW. SHe is limtied by pain and fear of falling. Am Pac score is unchanged but she is progressing with ambuation. HEP given including isometric hip and active hip abduuction
[2018-10-26 17:15] VITALS: BP 121/59
--- NOTE | 2018-10-26 18:22 | NUR ---
MEDICATION GIVEN TO PT TO HELP WITH BM. PASSING FLATUS.
[2018-10-26 19:36] VITALS: BP 103/62
--- NOTE | 2018-10-26 19:55 | NUR ---
Patient resting in bed. No complaints of pain. Patient AXOX4. NO S&S of distress. Patient has not had a bowel movement and has been given lactulose and milk of magnesium. Patient has not taken her miralax and wants to wait before she takes it. Patient is passing gas. Breath sounds clear. Red hip blister popped previously on right hip. Barrier cream applied to affected area. Patient is also repositioned for comfort. Will continue to monitor patient progress.
--- NOTE | 2018-10-26 23:58 | NUR ---
Patient resting in bed. No complaints of pain. 16fr callahan placed on patient due to reddness and irritation around her labia area. Patient tolerated well. clear javier urine flowing in catheter. R cheek blister on bottom is healing well. Most discoloration is gone. No s&S of distress. Will continue to monitor patient progress.
[2018-10-27 04:29] VITALS: BP 105/60
--- NOTE | 2018-10-27 05:28 | NUR ---
Patient resting in bed. Patient complains of pain in left leg. Patient given prn pain med. No S&S of distress. Will continue to monitor patient progress.
[2018-10-27 07:40] VITALS: BP 116/56
--- NOTE | 2018-10-27 07:40 | NUR ---
ASSESSMENT IS COMPLETED: IV SITE IS FREE FROM REDNESS OR EDEMA. HR IS REG,PULSES ARE STRONG X4, ABD IS SOFT WITH ACTIVE BS. BREATH SOUNDS ARE CLEAR, BILATERALLY. PT HAS A SPRINGER IN PLACE DUE TO URINARY RETENTION. CONTINUE TO OSBERVE AND MONITOR.
--- NOTE | 2018-10-27 10:30 | NUR ---
Entered Pt. room at 10:15 AM and pt. stated she was going to get a bath and her hair done. Would like therapy to come back after lunch.
[2018-10-27 11:43] LABS: ANION GAP 13 (6-22 (CALC)); BUN 13 mg/dL (8-23); BUN/CREATININE RATIO 19 (12-20 (CALC)); CARBON DIOXIDE 26 mmol/l (22-30); CHLORIDE 95 mmol/l (95-108); CREATININE 0.7 mg/dL (0.5-1.0); GFR > 60 ML/MIN (>=60 (CALC)); GFR FOR AFR.AMER. > 60 ML/MIN (>=60 (CALC)); POTASSIUM 4.9 mmol/l (3.5-5.1); SODIUM 129 mmol/l (137-146)
--- NOTE | 2018-10-27 12:00 | NUR ---
PT HAS HAD MANY BM. IV SITE IS FREE FROM REDNESS OR EDEMA. CONTINUE TO OBSERVE AND MONITOR.
--- NOTE | 2018-10-27 14:14 | NUR ---
Pt seen this pm for treatment, nursing and pt reported her just being clean up after BM. Pt performed AROM to RLE, AAROM to LLE, including quad/gluteal sets, ankle, DF/PF. Pt moved supine to sit with mod assist and mod assist to scoot to edge of bed. Pt sitting balance static was good. Pt stood with mod assist x1 with RW, once fully erect, she c/o lightheadness and need to sit. Mod assist for sit to supine and for proper positioning. Pt left in bed with call correa, phone and bedside table in reach. Nursing aware. [facility] 6 click unchanged.
[2018-10-27 15:39] VITALS: BP 101/60; BP 101/69
--- NOTE | 2018-10-27 16:15 | NUR ---
pt is relaxing in bed with no distress noted, iv site is free from redness or edema.
--- NOTE | 2018-10-27 19:12 | NUR ---
REPORT RECEIVED FROM DAY NURSE. PT IS IN BED LOW FOWLERS POSITIION. PT ASKED TO REPOSITION AT THIS TIME/REPOSITIONED W/PILLOWS. HEEL PROTECTORS REPLACED AT THIS TIME. POC DISCUSSED W/PT AND MED SCHEDULE DISCUSSED. WILL FOLLOW-UP W/PAIN MEDICATIONS REQUESTED WHEN THEY BECOME AVAILABLE. NO OTHER S/O DISTRESS NOTED AT THIS TIME. CALL LIGHT AT BEDSIDE.
[2018-10-27 19:49] VITALS: BP 106/64
--- NOTE | 2018-10-27 20:31 | NUR ---
PT ASSESSED AND MEDICATED ORDERS PROVIDE. PT MEDICATED FOR PAIN REPORTED 10/10 IN RIGHT HIP.IV FLUSHED/SITE APPEARS HEALTHY. LOCX3 APPEARS FORGETFULL.
--- NOTE | 2018-10-27 20:45 | NUR ---
PT ASSESSED AND ADMISSION COMPLETED AT THIS TIME. DAUGHTER WAS HERE TO ASSIST W/QUESTIONS. PT ABLE TO ANSWER MOST QUESTIONS AND DAUGHTER WOULD ASSIST AT TIMES. PT WAS IN RESTROOM AND ASSISTED BACK TO BED. SHE HAS BEEN INSTRUCTED TO CALL NEEDS ARISE AND VOICED UNDERSTANDING. PT AMBULATED WELL, MOVES QUICKLY AND WAS REMINDED TO SLOW DOWN SINCE SHE IS NOT FEELING WELL TONIGHT. NO C/O PAIN/N/V. LUNG SOUNDS ARE CLEAR, ABD SOFT NON-TENDER W/ACTIVE BOWEL SOUNDS/LAST STOOL REPORTED YEST TO BE NORMAL. 200CC OF CLEAR YELLOW URINE OUTPUT. SKIN IS INTACT, NEURO'S ARE INTACT, TRACE EDEMA NOTED TO LEFT KNEE/PT REPORTS RA AND REPORTS HAVING SHOTS IN KNEE AND FLUID DRAWN OFF PERIODICALLY. WILL CONTINUE TO MONITOR PT. DAUGHTER AND ARE LEAVING AT THIS TIME.
--- NOTE | 2018-10-27 23:16 | NUR ---
PT ASSISTED TO RESTROOM AND BACK TO BED BY OTHER FLOOR NURSE. I ARRIVED TO ROOM, PT WAS GETTING BACK INTO BED. IVF REPLACED/SITE APPEARS HEALTHY. PT DENIES ANY OTHER NEEDS AT THIS TIME. CALL LIGHT AT SIDE.
--- NOTE | 2018-10-28 00:05 | NUR ---
ENTERED ROOM TO CHECK PT, SHE WAS AWAKE IN LOW FOWLERS POSITION IN BED. SHE IMMEDIATELY STATED, "GOOD MORNING!" I REORIENTED PT TO THE TIMING AND TALKED W/HER. WE REPOSITIONED PILLOWS TO RIGHT SIDE AND REPLACED HEEL PROTECTORS. PT PROVIDED DECAF COFFEE. CALL LIGHT IN HAND.
--- NOTE | 2018-10-28 01:38 | NUR ---
PT MEDICATED FOR PAIN REPORTED 01/29. PT IS TALKATIVE AND ASKING ABOUT THE COFFEE I GAVE HER. ASSISTED IN REPOSITIONING FOR COMFORT, WANTS TO BE BACK TO RIGHT SIDE.
--- NOTE | 2018-10-28 03:00 | NUR ---
PT IS SLEEPING AT THIS TIME. NO S/O DISTRESS NOTED. CALL LIGHT AT BEDSIDE.
[2018-10-28 04:06] VITALS: BP 113/62
[2018-10-28 04:34] LABS: HEMATOCRIT 26.1 % (37.0-47.0); HEMOGLOBIN 8.4 g/dl (12.0-16.0); IMMATURE GRANULOCYTES 0.6 % (0.0-5.0); MEAN CELL VOLUME 98.9 fL CALC (80.0-100.0); MEAN CORPUSCULAR HGB 31.8 pG CALC (26.0-32.0); MEAN CORPUSCULAR HGB CONC 32.2 g/L CALC (32.0-36.0); NEUT# 6.84 thou/uL (2.00-7.15); RED BLOOD COUNT 2.64 mill/uL (4.20-5.60); RED CELL DISTRI WIDTH 14.7 % (11.5-15.5)
[2018-10-28 04:52] LABS: ALBUMIN 2.9 g/dL (3.2-5.0); ALKALINE PHOSPHATASE 56 u/l (38-126); ANION GAP 11 (6-22 (CALC)); BILIRUBIN, TOTAL 0.9 mg/dL (0.0-1.4); BUN 13 mg/dL (8-23); BUN/CREATININE RATIO 20 (12-20 (CALC)); CARBON DIOXIDE 25 mmol/l (22-30); CHLORIDE 98 mmol/l (95-108); CREATININE 0.6 mg/dL (0.5-1.0); GFR > 60 ML/MIN (>=60 (CALC)); GFR FOR AFR.AMER. > 60 ML/MIN (>=60 (CALC)); MAGNESIUM 2.7 mg/dL (1.6-2.3); POTASSIUM 5.1 mmol/l (3.5-5.1); SGOT/AST 22 u/l (9-36); SODIUM 129 mmol/l (137-146); TOTAL PROTEIN 5.2 g/dL (6.3-8.2)
--- NOTE | 2018-10-28 07:15 | NUR ---
PT REPORT RECIEVED FROM TD SAWANT. PT RESTING. NO S/S OF DISTRESS. CALL LIGHT IN REACH. WILL CONTINUE TO MONITOR.
[2018-10-28 08:20] VITALS: BP 111/50
--- NOTE | 2018-10-28 08:20 | NUR ---
PT A/O X3. SPEECH IS CLEAR. RESP EVEN AND UNLABORED. LUNG SOUNDS CLEAR. BOWEL SOUNDS ACTIVE X4. STRONG RADIAL, WEAK PEDAL PULSES. #22 LFA SL. FLUSHED AND PATENT. SITE APPEARS HEALTHY. SPRINGER INTACT; DRAINING CLEAR YELLOW URINE TO GRAVITY. TRACE OF EDEMA TO BILATERAL ANKLES. PT C/O LT HIP PAIN; 10 OUT OF 10 ON PAIN SCALE. MEDICATED W/ ONE LORTAB 5/325 PO. REPOSITIONED FOR COMFORT. PT HAS OPEN BLISTER ARE TO RT BUTTOCK AND OPEN AREA BETWEEN BUTT CHEEKS; BARRIER CREAM APPLIED. PRESSURE RELIEVED W/ PILLOW APPLIED UNDER BUTTOCK. PT DENIES ANY FURTHER NEEDS. POC DISCUSSSED. SAFETY PRECAUTIONS IN PLACE. CALL LIGHT IN REACH. WILL CONTINUE TO MONITOR.
--- NOTE | 2018-10-28 09:53 | NUR ---
PHYSICAL THERAPY WORKING W/ PT
--- NOTE | 2018-10-28 11:20 | NUR ---
325 ML DRAINED FROM CATHETER. 10CC REMOVED FROM BALLOON; SPRINGER REMOVED PER MD. PT TOLERATED WELL. INSTRUCTED PT TO CALL WHEN FEELING THE NEED TO VOID; VERBALIZES UNDERSTANDING. BSC PLACED NEAR BED. CALL LIGHT IN REACH. WILL CONTINUE TO MONITOR.
--- NOTE | 2018-10-28 11:47 | NUR ---
PT WAS SEEN THIS AM FOR FUNCTIONAL ACTIVITIES AND THEREX. PERFORMED AAROME ON B LE AND THEREX ADVISED BY THERAPIST WHO PREVIOUSLY SEEN HER. INCLUDED QUADS SETTING, ANKLE PUMPS AND SUPINE HIP ABDUCTION X 10 REPS X 2 SETS. PT THEN WAS GIVEN MIN A TO SIT ON EOB FROM SUPINE. STATIC SITING BALANCE WAS GOOD. ASSUMED STANDING WITH MOD A OF 1 AND WALKER TO MAINTAIN UPRIGHT POSITION. ALSO PROVIDED VERBAL CUES ON PROPER POSTURE. PT DENIED PAIN ON L HIP. MAINTAINED STANDING FOR 2 MINS. PRIOR TO REQUESTING TO BE SAT DOWN ON BED. ALSO REPORTS FEELING OF DIZZINESS IN STANDING POS. PT RETURNED TO SUPINE ON BED WITH MOD A OF 2 TO REPOSITION WITH DRAWSHEET. AMPAC: 10 POINTS, ECF OR [facility]
--- NOTE | 2018-10-28 12:51 | NUR ---
PT C/O LT HIP PAIN; 9 OUT OF 10 ON PAIN SCALE. MEDICATED W/ ONE LORTAB PO. REPOSITIONED FOR COMFORT. PT DENIES ANY FURTHER NEEDS. BSC NEAR BED. CALL LIGHT IN REACH. WILL CONTINUE TO MONITOR.
[2018-10-28] MEDS ORDERED: LORTAB 5/3255 MG PO (13:58)
[2018-10-28] MEDS ORDERED: PANTOPRAZOLE SO40 M1 PO (13:59)
[2018-10-28] MEDS ORDERED: SOD CHLORIDE1 GM PO (14:00)
[2018-10-28 14:55] VITALS: BP 102/54
--- NOTE | 2018-10-28 16:06 | NUR ---
D/C INSTRUCTIONS DISCUSSED W/ PT. PT STATES UNDERSTANDING. IV REMOVED. CATHETER INTACT. PT ASSISTED W/ DRESSING. AWAITING [facility] STAFF FOR TRANSPORT
--- NOTE | 2018-10-28 16:23 | NUR ---
Discharge instructions given. Patient verbalizes understanding of same. Discharged in stable condition via Wheelchair to [facility] with *Other. All belongings sent with pt.
== END 2018-10-28 16:18 | DRG 536 ==
LOC: ED 14:30 → ED-I 16:50 → ED 17:15 → MS2 17:16
PROVIDERS: Emergency Medicine; Nurse Practitioner Family; ADMIT Internal Medicine Nephrology; ATTEND Internal Medicine Nephrology
PROC: 0T9B70Z Drainage of Bladder with Drainage Device, Via Natural or Artificial Opening (ICD-10-PCS; principal; 2018-10-26)
DX: S32.592A Other specified fracture of left pubis, initial encounter for closed fracture (principal); E22.2 Syndrome of inappropriate secretion of antidiuretic hormone; L89.312 Pressure ulcer of right buttock, stage 2; I10 Essential (primary) hypertension; F32.9 Major depressive disorder, single episode, unspecified; E55.9 Vitamin D deficiency, unspecified; G89.29 Other chronic pain; E78.5 Hyperlipidemia, unspecified; M15.9 Polyosteoarthritis, unspecified; M81.0 Age-related osteoporosis without current pathological fracture; T43.225A Adverse effect of selective serotonin reuptake inhibitors, initial encounter; F41.1 Generalized anxiety disorder; M54.5 Low back pain; W01.0XXA Fall on same level from slipping, tripping and stumbling without subsequent striking against object, initial encounter; Y92.002 Bathroom of unspecified non-institutional (private) residence as the place of occurrence of the external cause; Z86.73 Personal history of transient ischemic attack (TIA), and cerebral infarction without residual deficits; Z79.891 Long term (current) use of opiate analgesic
CPT/HCPCS: G0378

== ENCOUNTER 2021-07-06 13:44 | Emergency (ER) | payer MEDICARE, MEDICAID ==
[2021-07-06] VITALS (26 sets, daily range): BP systolic 34–185; BP diastolic 19–120
[~2021-07-06] VITALS: Ht 162.6 cm; Wt 61.0 kg
[~2021-07-06 13:44] MED LIST changes: +ALENDRONATE70 MG PO; +DULOXETINE HCL30 MG PO; +LORTAB 5/3255 MG PO; +MELOXICAM7.5 MG PO; +SOD CHLORIDE1 GM PO
[2021-07-06 20:46] LABS: HEMATOCRIT 37.3 % (37.0-47.0); HEMOGLOBIN 11.9 g/dl (12.0-16.0); IMMATURE GRANULOCYTES 0.2 % (0.0-5.0); MEAN CELL VOLUME 104.2 fL CALC (80.0-100.0); MEAN CORPUSCULAR HGB 33.2 pG CALC (26.0-32.0); MEAN CORPUSCULAR HGB CONC 31.9 g/dL CAL (32.0-36.0); NEUT# 9.12 thou/uL (2.00-7.15); RED BLOOD COUNT 3.58 mill/uL (4.20-5.60); RED CELL DISTRI WIDTH 14.2 % (11.5-15.5)
[2021-07-06 20:56] LABS: ALKALINE PHOSPHATASE 75 u/l (38-126); ANION GAP 13 (6-22 (CALC)); BILIRUBIN, TOTAL 0.6 mg/dL (0.0-1.4); BUN 11 mg/dL (8-23); BUN/CREATININE RATIO 15 (12-20 (CALC)); CARBON DIOXIDE 26 mmol/l (22-30); CHLORIDE 96 mmol/l (95-108); CREATININE 0.7 mg/dL (0.5-1.0); GFR > 60 ML/MIN (>=60 (CALC)); GFR FOR AFR.AMER. > 60 ML/MIN (>=60 (CALC)); POTASSIUM 3.9 mmol/l (3.5-5.1); SGOT/AST 28 u/l (9-36); SODIUM 130 mmol/l (137-146); TOTAL PROTEIN 7.7 g/dL (6.3-8.2)
[2021-07-06 21:00] LABS: MAGNESIUM 1.9 mg/dL (1.6-2.3)
[2021-07-06 21:08] LABS: MYOGLOBIN 114 ng/mL (0 - 62)
[2021-07-06] MEDS ORDERED: ULTRAM50 M1 PO (21:22)
== END 2021-07-06 21:45 | disposition home or self-care (01) ==
LOC: ED 13:44
PROVIDERS: Nurse Practitioner
DX: M19.011 Primary osteoarthritis, right shoulder (principal); I48.91 Unspecified atrial fibrillation; I10 Essential (primary) hypertension; E78.5 Hyperlipidemia, unspecified; Z79.01 Long term (current) use of anticoagulants; Z79.82 Long term (current) use of aspirin; Z86.73 Personal history of transient ischemic attack (TIA), and cerebral infarction without residual deficits